=== PATIENT | female | born 1990 | race Hispanic/Latino ===

== ENCOUNTER 2016-10-25 07:00 | Emergency (ER) | payer OTHER, SELFPAY ==
[2016-10-25] MEDS ORDERED: Lidocaine Viscous Sol 2% 15 ml UD Cup ONE (07:23)
[2016-10-25] MEDS ORDERED: Magnesium Sulfate 2 GM/NS 0.9% 50 ML BAG ONE (07:24)
[2016-10-25] MEDS ORDERED: Mag-Al Plus 1200 MG/1200 MG/120 MG/30 ML UDCUP ONE (07:24)
--- NOTE | 2016-10-25 08:12 | ERRECORD ---
[facility] EMERGENCY RECORD HPI ABDOMINAL PAIN (07:17 JLOY) CHIEF COMPLAINTS: Patient presents for evaluation of abdominal pain, Patient presents for evaluation of Pt with epigastric pain starting 3 hours ago while sleeping. Worse with laying down. She had a similar incident 3 years ago in [place] and it resolved with some unknown medication. No meds attempted today. Pt ate spicy food last pm for dinner. HISTORIAN: History provided by patient. LOCATION FEMALE: Symptoms are localized. QUALITY: Pain is dull in nature. TIME COURSE: Sudden onset of symptoms, Symptoms are constant, There has been no change in the patient's symptoms over time. ASSOCIATED WITH FEMALE: No associated chills, No associated diarrhea, No associated fever, No associated nausea, No associated vomiting. RELIEVED BY: Patient's condition relieved by nothing. EXACERBATED BY: Patient's condition exacerbated by supine position. ROS (07:18 JLOY) CONSTITUTIONAL: Historian denies chills, denies fever. GI: Historian reports abdominal pain, denies diarrhea, denies nausea, denies vomiting. GENITOURINARY FEMALE: Historian denies dysuria, denies frequency, denies hematuria. PAST MEDICAL HISTORY MEDICAL HISTORY: Flu vaccine not up to date, Tetanus not up to date, No past medical history,. (07:07 BDON) FEMALE SURGICAL HISTORY: Patient has no surgical history. (07:07 BDON) PSYCHIATRIC HISTORY: No previous psychiatric history. (07:07 BDON) SOCIAL HISTORY: Patient denies alcohol use, Patient denies drug use, Patient has no smoking history. (07:07 BDON) NOTES: Nursing records reviewed, Agree with nursing records. (07:19 JLOY) KNOWN ALLERGIES No Known Drug Allergies CURRENT MEDICATIONS (07:06 BDON) None VITAL SIGNS VITAL SIGNS: BP: 128/77, Pulse: 88, Temp: 96.9 (Oral), Pain: 7, O2 sat: 99, Time: 10/25/2016 07:04. (07:04 BDON) Pulse: 84, Resp: 17, Time: 10/25/2016 08:09. (08:09 BDON) PHYSICAL EXAM (07:18 JLOY) &a-1R&a+25V*p+0X*n8820N*c202B*c15G*c2P*p-0X&a-25V&a+1R Name: Mireya Cano V : 1990 F26 MedRec: [id number] AcctNum: [id number] Prepared: SunOct 25, 2016 08:15 by Interface Page 1 of 3 D [facility] EMERGENCY RECORD CONSTITUTIONAL: Vital Signs Reviewed, Patient appears non toxic, Patient appears, in moderate pain distress, Patient alert and oriented to person, place and time. EYES: Eye exam included findings of eyelids normal to inspection, Pupils equally round and reactive to light, Conjunctiva normal. ENT: Pharynx exam normal, Uvula exam normal, Tonsil exam normal, Mouth exam normal, mucous membranes moist. RESPIRATORY CHEST: Respiratory exam included findings of no respiratory distress, Breath sounds clear, No wheezing, No rales, No rhonchi, Chest exam included findings of chest movement symmetrical. CARDIOVASCULAR: Cardiovascular exam included findings of heart rate regular rate and rhythm, Heart sounds normal. ABDOMEN FEMALE: Abdominal exam included findings of abdomen tender, to the epigastric region, moderate intensity, Bowel sounds normal, Liver normal, Spleen normal, no distension, no peritoneal signs, no rigidity, no guarding, no rebound. NEURO: Néstor coma scale 15, Neuro exam findings include patient oriented to person, place and time, Speech normal. PSYCHIATRIC: Normal affect. MEDICATION ADMINISTRATION SUMMARY Drug Name: GI COCKTAIL - WHITE, Dose Ordered: 40 mL, Route: Oral, Status: Given, Time: 07:30 10/25/2016, Drug Name: Protonix oral, Dose Ordered: 40 mg, Route: Oral, Status: Given, Time: 07:29 10/25/2016, Detailed record available in Medication Service section. DOCTOR NOTES (08:03 JLOY) RE-EVALUATION: The patient's condition has improved, pain resolved. PROBLEM LIST No recorded problems DIAGNOSIS (08:02 JLOY) FINAL: PRIMARY: Abdominal Pain. PRESCRIPTION (08:02 JLOY) omeprazole: CAPSULE,DELAYED RELEASE (ENTERIC COATED) : 20 mg : ORAL : Quantity: 20 Unit: mg Route: ORAL Schedule: once a day Dispense: 14 May substitute. Refills: No Refills . NOTES: No Refills. DISPOSITION PATIENT: Disposition Type: Discharge, Disposition: *Discharge Home. (08:02 JLOY) Patient left the department. (08:13 BDON) &a-1R&a+25V*p+0X*m5980H*c202B*c15G*c2P*p-0X&a-25V&a+1R Name: Mireya Cano V : 1990 F26 MedRec: [id number] AcctNum: [id number] Prepared: SunOct 25, 2016 08:15 by Interface Page 2 of 3 pMD [facility] EMERGENCY RECORD [place]: MASOUD=JAMES Willett, Mira SOSA=MD Valeriano, Celio &a-1R&a+25V*p+0X*d8879Z*c202B*c15G*c2P*p-0X&a-25V&a+1R Name: Mireya Cano V : 1990 F26 MedRec: [id number] AcctNum: [id number] Prepared: SunOct 25, 2016 08:15 by Interface Page 3 of 3 pMD MTDD
--- NOTE | 2016-10-25 08:16 | PICIS ---
[facility] EMERGENCY RECORD TRIAGE (07:06 BDON) TRIAGE NOTES: Epi gastric pain, ate spicy food last night. (07:06 BDON) PATIENT: NAME: Mireya Cano V, AGE: 26, GENDER: female, : Bee 1990, TIME OF GREET: SunOct 25, 2016 07:01, PREFERRED LANGUAGE: Romansh, ETHNICITY: or , ECODE BILLING MAP: RONNY [facility], SSN: [id number], Zip Code: [address], KG WEIGHT: 72.57, PHONE: , , , PERSON ID: [id number], PCP: none. (07:06 BDON) COMPLAINT: STOMACH PAIN. (07:06 BDON) ADMISSION: URGENCY: 4 Non Urgent, ADMISSION SOURCE: Home, TRANSPORT: Walk-in, BED: TRIAGE. (07:06 BDON) ASSESSMENT: Assessment: Epi gastric pain, ate spicy food last night, Symptoms began 3 hours ago. (07:07 BDON) LMP: Last menstrual period: 10/15/2016. (07:07 BDON) TREATMENTS IN PROGRESS: Treatments given Prehospital: none. (07:07 BDON) PROVIDERS: TRIAGE NURSE: Mira Willett RN. (07:06 BDON) VITAL SIGNS: BP 128/77, Pulse 88, Temp 96.9, (Oral), Pain 7, O2 Sat 99, Time 10/25/2016 07:04. (07:04 BDON) PREVIOUS VISIT ALLERGIES: No Known Drug Allergies. (07:06 BDON) No Known Drug Allergies. (07:07 BDON) KNOWN ALLERGIES No Known Drug Allergies CURRENT MEDICATIONS (07:06 BDON) None VITAL SIGNS VITAL SIGNS: BP: 128/77, Pulse: 88, Temp: 96.9 (Oral), Pain: 7, O2 sat: 99, Time: 10/25/2016 07:04. (07:04 BDON) Pulse: 84, Resp: 17, Time: 10/25/2016 08:09. (08:09 BDON) NURSING ASSESSMENT: ABDOMEN (07:31 BDON) CONSTITUTIONAL: Patient arrives ambulatory, History obtained from patient, Patient appears, in distress due to pain, Patient cooperative, Patient alert, Oriented to person, place and time, Skin warm, Skin dry, Skin normal in color. PAIN: to the epigastric region. ABDOMEN: Abdomen assessment findings include abdomen symmetrical, Abdomen soft, non-tender, no associated vomiting. GENITOURINARY FEMALE: no associated urinary complaints. SAFETY: Cart/Stretcher in lowest position, Family at bedside, Hospital ID band on, Patient in view of the nursing station. NURSING PLAN OF CARE: Acute Medical Condition:, Patient is able to participate in development and implementation of nursing plan of care for acute medical condition. &a-1R&a+25V*p+0X*k3904G*c202B*c15G*c2P*p-0X&a-25V&a+1R Name: Mireya Cano V : 1990 F26 MedRec: [id number] AcctNum: [id number] Prepared: SunOct 25, 2016 08:19 by Interface Page 1 of 4 pMD [facility] EMERGENCY RECORD NURSING PROCEDURE: DISCHARGE NOTE (08:09 BDON) DISCHARGE: Patient discharged to home, ambulating without assistance, accompanied by parent, Summary of Care printed/ provided, Patient requested and was provided an electronic copy of Discharge Instructions, Transition record given to patient, Discharge instructions given to patient, Simple or moderate discharge teaching performed, Prescriptions given and instructions on side effects given, Patient treated and evaluated by physician. VITAL SIGNS: Pulse: 84, Resp: 17. MEDICATION ADMINISTRATION SUMMARY Drug Name: GI COCKTAIL - WHITE, Dose Ordered: 40 mL, Route: Oral, Status: Given, Time: 07:30 10/25/2016, Drug Name: Protonix oral, Dose Ordered: 40 mg, Route: Oral, Status: Given, Time: 07:29 10/25/2016, Detailed record available in Medication Service section. MEDICATION SERVICE GI COCKTAIL - WHITE: Order: GI COCKTAIL - WHITE - Dose: 40 mL : Oral Lidocaine Viscous (lidocaine HCl) [10 mL] MAG-AL (magnesium hydroxide/aluminum hydroxide) [30 mL] Ordered by: Celio Bal MD Entered by: Celio Bal MD SunOct 25, 2016 07:16 , Acknowledged by: Carlee Kirby RN SunOct 25, 2016 07:20 Documented as given by: Mira Willett RN SunOct 25, 2016 07:30 Patient, Medication, Dose, Route and Time verified prior to administration. Site: Medication administered P.O. Protonix oral: Order: Protonix oral (pantoprazole sodium) - Dose: 40 mg : Oral Ordered by: Celio Bal MD Entered by: Celio Bal MD SunOct 25, 2016 07:16 , Acknowledged by: Carlee Kirby RN SunOct 25, 2016 07:20 Documented as given by: Mira Willett RN SunOct 25, 2016 07:29 Patient, Medication, Dose, Route and Time verified prior to administration. Site: Medication administered P.O. HPI ABDOMINAL PAIN (07:17 JL) CHIEF COMPLAINTS: Patient presents for evaluation of abdominal pain, Patient presents for evaluation of Pt with epigastric pain starting 3 hours ago while sleeping. Worse with laying down. She had a similar incident 3 years ago in [place] and it resolved with some unknown medication. No meds attempted today. Pt ate spicy food last pm for dinner. HISTORIAN: History provided by patient. LOCATION FEMALE: Symptoms are localized. QUALITY: Pain is dull in nature. TIME COURSE: Sudden onset of symptoms, &a-1R&a+25V*p+0X*w7478Q*c202B*c15G*c2P*p-0X&a-25V&a+1R Name: Mireya Cano V : 1990 F26 MedRec: [id number] AcctNum: [id number] Prepared: SunOct 25, 2016 08:19 by Interface Page 2 of 4 pMD [facility] EMERGENCY RECORD Symptoms are constant, There has been no change in the patient's symptoms over time. ASSOCIATED WITH FEMALE: No associated chills, No associated diarrhea, No associated fever, No associated nausea, No associated vomiting. RELIEVED BY: Patient's condition relieved by nothing. EXACERBATED BY: Patient's condition exacerbated by supine position. ROS (07:18 JL) CONSTITUTIONAL: Historian denies chills, denies fever. GI: Historian reports abdominal pain, denies diarrhea, denies nausea, denies vomiting. GENITOURINARY FEMALE: Historian denies dysuria, denies frequency, denies hematuria. PAST MEDICAL HISTORY MEDICAL HISTORY: Flu vaccine not up to date, Tetanus not up to date, No past medical history,. (07:07 BDON) FEMALE SURGICAL HISTORY: Patient has no surgical history. (07:07 BDON) PSYCHIATRIC HISTORY: No previous psychiatric history. (07:07 BDON) SOCIAL HISTORY: Patient denies alcohol use, Patient denies drug use, Patient has no smoking history. (07:07 BDON) NOTES: Nursing records reviewed, Agree with nursing records. (07:19 JLOY) PHYSICAL EXAM (07:18 JLOY) CONSTITUTIONAL: Vital Signs Reviewed, Patient appears non toxic, Patient appears, in moderate pain distress, Patient alert and oriented to person, place and time. EYES: Eye exam included findings of eyelids normal to inspection, Pupils equally round and reactive to light, Conjunctiva normal. ENT: Pharynx exam normal, Uvula exam normal, Tonsil exam normal, Mouth exam normal, mucous membranes moist. RESPIRATORY CHEST: Respiratory exam included findings of no respiratory distress, Breath sounds clear, No wheezing, No rales, No rhonchi, Chest exam included findings of chest movement symmetrical. CARDIOVASCULAR: Cardiovascular exam included findings of heart rate regular rate and rhythm, Heart sounds normal. ABDOMEN FEMALE: Abdominal exam included findings of abdomen tender, to the epigastric region, moderate intensity, Bowel sounds normal, Liver normal, Spleen normal, no distension, no peritoneal signs, no rigidity, no guarding, no rebound. NEURO: Néstor coma scale 15, Neuro exam findings include patient oriented to person, place and time, Speech normal. PSYCHIATRIC: Normal affect. &a-1R&a+25V*p+0X*z5246F*c202B*c15G*c2P*p-0X&a-25V&a+1R Name: Mireya Cano V : 1990 F26 MedRec: [id number] AcctNum: [id number] Prepared: SunOct 25, 2016 08:19 by Interface Page 3 of 4 pMD [facility] EMERGENCY RECORD EVENTS TRANSFER: Triage to Emergency Triage. (SunOct 25, 2016 07:06 BDON) Emergency Triage to Emergency Room -04. (07:06 BDON) Removed from Emergency Emergency Room -04. (08:13 BDON) DOCTOR NOTES (08:03 JLOY) RE-EVALUATION: The patient's condition has improved, pain resolved. PROBLEM LIST No recorded problems DIAGNOSIS (08:02 JLOY) FINAL: PRIMARY: Abdominal Pain. DISPOSITION PATIENT: Disposition Type: Discharge, Disposition: *Discharge Home. (08:02 JLOY) Patient left the department. (08:13 BDON) INSTRUCTION (08:02 JLOY) DISCHARGE: GASTRITIS VS. ULCER. FOLLOWUP: Follow up with Primary Care Physician in 7-10 days. PRESCRIPTION (08:02 JLOY) omeprazole: CAPSULE,DELAYED RELEASE (ENTERIC COATED) : 20 mg : ORAL : Quantity: 20 Unit: mg Route: ORAL Schedule: once a day Dispense: 14 May substitute. Refills: No Refills . NOTES: No Refills. IMAGING (08:12 BDON) *DISCHARGE INSTRUCTIONS RECEIPT: Image captured from scanner. *SUPPLY CHARGE SHEET: Image captured from scanner. ADMIN DIGITAL SIGNATURE: MD Bal Joshua. (08:03 JLOY) JAMES Willett Bettye. (08:13 BDON) [place]: BDON=JAMES Willett Bettye JLOY=MD Bal Joshua &a-1R&a+25V*p+0X*z0763Q*c202B*c15G*c2P*p-0X&a-25V&a+1R Name: Gogo HernandezBoo , Mireya Ordoñez : 1990 F26 MedRec: [id number] AcctNum: [id number] Prepared: SunOct 25, 2016 08:19 by Interface Page 4 of 4 pMD MTDD
== END 2016-10-25 08:09 | disposition home or self-care (01) ==
LOC: NAV ERS 07:00
DX: R10.13 Epigastric pain (principal)
CPT/HCPCS: 99283; J3475

== ENCOUNTER 2018-10-30 09:19 | Emergency (ER) | payer BC, SELFPAY ==
[2018-10-30 09:59] LABS: #Basophils 0.1 thou/uL (0.0-0.2); #Eosinphils 0.1 thou/uL (0.0-0.7); #Lymphocytes 2.5 thou/uL (1.20-3.40); #Monocytes 0.9 thou/uL (0.11-0.59); #Neutrophils 5.8 thou/uL (1.40-6.50); %Basophils 0.8 % (0.0-1.0); %Eosinophils 0.6 % (0.0-10.0); %Lymphocytes 26.5 % (21.0-51.0); %Monocytes 9.3 % (0.0-10.0); %Neutrophils 62.8 % (42.0-75.0); Hemoglobin 13.5 g/dL (12.0-16.0); Mean Corpuscular HGB CONC 33.6 g/dL (32.0-36.0); Mean Corpuscular Hemoglobin 28.4 pg (27.0-31.0); Mean Corpuscular Volume 84.4 fL (78.0-98.0); Mean Platelet Volume 6.4 fL (7.4-10.4); Platelet Count 305 thou/uL (130-400); RBC Distribution Width 11.8 % (11.5-14.5); Red Blood Cell (RBC) Count 4.75 mill/uL (4.20-5.40); White Blood Cell (WBC) Count 9.3 thou/uL (4.8-10.8)
[2018-10-30 10:02] LABS: Bilirubin Negative (Negative); Blood, Urine Large (Negative); Clarity Clear (Clear); Glucose, Urine (Dipstick) Negative (Negative); Leukocyte Negative (Negative); Nitrite Negative (Negative); Protein, Urine (Dipstick) Negative (Neg-Trace); Urobilinogen 0.2 mg/dL (0.2-1.0)
[2018-10-30 10:11] LABS: Bacteria/HPF 1+ HPF (None Seen); Other Microscopic Description NO; WBC/HPF 0-3 HPF (0-3)
--- NOTE | 2018-10-30 11:13 | ULT ---
PELVIC ULTRASOUND: Date: 10-30-18 History: 28-year-old female with vaginal spotting. Technique: Multiplanar grayscale sonographic imaging of the pelvis obtained with transvaginal imaging . Ovaries were assessed with color flow and spectral analysis. FINDINGS: Gestational sac is present within the uterine fundus. A yolk sac and pole are noted. hear t rate is estimated at 110 beats/minute. Uterus is retroverted and measures 7.4 x 4.4 x 4.8 cm. Right ovary measures 2.4 x 3.4 x 1.8 cm and left ovary measures 1.2 x 2.7 x 1.2 cm. Blood flow is not ed within both ovaries. No ovarian or adnexal mass. No subchorionic hemorrhage evident. No free pelvi c fluid. [place]-rump length is 0.66 cm, which correlates with a 6 week 4 day gestation. Estimated date of sidney pope is 06-21-19. IMPRESSION: Intrauterine gestation as detailed above. heart rate estimated at 110 beats/minute. POS: ANN
== END 2018-10-30 10:57 | disposition home or self-care (01) ==
LOC: NAV ERS 09:19
DX: O20.0 Threatened abortion (principal); Z3A.01 Less than 8 weeks gestation of pregnancy
CPT/HCPCS: 36415; 76856; 81003; 81015; 84702; 85025; 86900; 86901; 87086

== ENCOUNTER 2019-01-08 17:56 | Emergency (ER) | payer BC ==
[2019-01-08] MEDS ORDERED: Lidocaine Viscous Sol 2% 15 ml UD Cup ONE (18:40)
[2019-01-08] MEDS ORDERED: Mag-Al Plus 1200 MG/1200 MG/120 MG/30 ML UDCUP ONE (18:40)
== END 2019-01-08 19:08 | disposition home or self-care (01) ==
LOC: NAV ERS 17:56
DX: O99.612 Diseases of the digestive system complicating pregnancy, second trimester (principal); K29.00 Acute gastritis without bleeding; Z79.82 Long term (current) use of aspirin; Z3A.17 17 weeks gestation of pregnancy
CPT/HCPCS: 99283

== ENCOUNTER 2019-02-04 14:12 | Outpatient (CLI) | payer OTHER, SELFPAY ==
--- NOTE | 2019-02-04 15:30 | ULT ---
OB ULTRASOUND: HISTORY: Evaluation of size and dates. FINDINGS: Real-time imaging of the pelvis shows a single viable intrauterine in a breech presentation . The placenta is posterior and fundal in location. The amniotic fluid is adequate for this stage o f . An amniotic fluid index of 14.3 was obtained. heart rate is 150 beats per minute. Review of anatomy did not detect any abnormalities. measurements are as follows: BPD: 4.7 cm (20 weeks 2 days). HEAD CIRCUMFERENCE: 17.8 cm (20 weeks 2 days). ABDOMINAL CIRCUMFERENCE: 16.7 cm (21 weeks 5 days). FEMUR LENGTH: 3.4 cm (20 weeks 3 days). IMPRESSION: 1. Single viable intrauterine , in a breech presentation. Overall measurements correspondi ng to a gestational age of 20 weeks 3 days. Estimated date of delivery of 06/21/2019. 2. Placenta which is posterior and fundal in location. POS: [facility]
== END 2019-02-04 14:13 | disposition home or self-care (01) ==
LOC: NAV ULT 14:12
PROVIDERS: ATTEND Family Medicine
DX: Z34.92 Encounter for supervision of normal pregnancy, unspecified, second trimester (principal); Z3A.20 20 weeks gestation of pregnancy
CPT/HCPCS: 76805

== ENCOUNTER 2019-03-17 14:38 | Emergency (ER) | payer SELFPAY ==
[2019-03-17] MEDS ORDERED: Mag-Al Plus 1200 MG/1200 MG/120 MG/30 ML UDCUP ONE (14:58)
== END 2019-03-17 15:07 | disposition home or self-care (01) ==
LOC: NAV ERS 14:38
DX: O99.612 Diseases of the digestive system complicating pregnancy, second trimester (principal); K21.9 Gastro-esophageal reflux disease without esophagitis; Z79.82 Long term (current) use of aspirin; Z3A.26 26 weeks gestation of pregnancy
CPT/HCPCS: 99283

== ENCOUNTER 2020-12-20 18:35 | Emergency (ER) | payer BC, MEDICAID ==
[2020-12-20 19:14] LABS: Bilirubin Negative (Negative); Blood, Urine Moderate (Negative); Clarity Clear (Clear); Glucose, Urine (Dipstick) Negative (Negative); Ketone, Urine Negative (Negative); Leukocyte Negative (Negative); Nitrite Negative (Negative); Protein, Urine (Dipstick) Negative (Neg-Trace); Urobilinogen 0.2 mg/dL (Less than 2)
[2020-12-20] MEDS ORDERED: Sodium Chloride 0.9% 1,000 ML ONE ×2 (19:18→20:01)
[2020-12-20 19:22] LABS: RBC/HPF 0-3 HPF (0-3); Squamous Epithelial 0-3 HPF (0-3); WBC/HPF 0-3 HPF (0-3)
[2020-12-20 19:23] LABS: Pregnancy Test - Urine (BHCG) Negative (Negative); Pregu Control Background? CLEAR/WHITE (CLR/WHITE); Pregu Control Bar Appear? YES (CONTROL BAR)
[2020-12-20 19:26] LABS: #Basophils 0.1 thou/uL (0.0-0.2); #Eosinphils 0.2 thou/uL (0.0-0.7); #Lymphocytes 2.5 thou/uL (1.20-3.40); #Neutrophils 8.1 thou/uL (1.40-6.50); %Basophils 0.6 % (0.0-1.0); %Eosinophils 1.4 % (0.0-10.0); %Lymphocytes 21.3 % (21.0-51.0); %Monocytes 8.2 % (0.0-10.0); %Neutrophils 68.5 % (42.0-75.0); Hemoglobin 13.3 g/dL (12.0-16.0); Mean Corpuscular HGB CONC 32.8 g/dL (32.0-36.0); Mean Corpuscular Hemoglobin 28.1 pg (27.0-31.0); Mean Corpuscular Volume 85.5 fL (78.0-98.0); Mean Platelet Volume 5.6 fL (7.4-10.4); Platelet Count 424 thou/uL (130-400); RBC Distribution Width 11.6 % (11.5-14.5); Red Blood Cell (RBC) Count 4.76 mill/uL (4.20-5.40); White Blood Cell (WBC) Count 11.8 thou/uL (4.8-10.8)
[2020-12-20 19:41] LABS: ALT (SGPT) 23 U/L (8-55); AST (SGOT) 15 U/L (5-34); Albumin 3.9 g/dL (3.5-5.0); Alkaline Phosphatase 111 U/L (40-110); Anion Gap 15 mmol/L (10-20); BUN (Urea Nitrogen) 9 mg/dL (7.0-18.7); Bilirubin, Total 0.3 mg/dL (0.2-1.2); Calc. Creatinine Clearance 0 mL/min (70-130); Calcium 9.1 mg/dL (7.8-10.44); Carbon Dioxide 25 mmol/L (22-29); Chloride 104 mmol/L (98-107); Globulin 4.3 g/dL (2.4-3.5); Glucose 126 mg/dL (70-105); Lipase 59 U/L (8-78); Protein, Total 8.2 g/dL (6.0-8.3); Sodium 140 mmol/L (136-145)
== END 2020-12-20 20:33 | disposition short-term general hospital (02) ==
LOC: NAV ERS 18:35
DX: R10.11 Right upper quadrant pain (principal)
CPT/HCPCS: 80053; 81003; 81015; 81025; 83690; 85025; 99284; J7050

== ENCOUNTER 2021-01-05 17:32 | Emergency (ER) | payer BC ==
[2021-01-05 18:49] LABS: #Basophils 0.1 thou/uL (0.0-0.2); #Eosinphils 0.1 thou/uL (0.0-0.7); #Lymphocytes 1.9 thou/uL (1.20-3.40); #Neutrophils 11.3 thou/uL (1.40-6.50); %Basophils 0.5 % (0.0-1.0); %Eosinophils 0.4 % (0.0-10.0); %Neutrophils 79.2 % (42.0-75.0); Hemoglobin 12.1 g/dL (12.0-16.0); Mean Corpuscular HGB CONC 32.7 g/dL (32.0-36.0); Mean Corpuscular Hemoglobin 27.5 pg (27.0-31.0); Mean Corpuscular Volume 84.1 fL (78.0-98.0); Mean Platelet Volume 5.6 fL (7.4-10.4); Platelet Count 444 thou/uL (130-400); RBC Distribution Width 11.6 % (11.5-14.5); Red Blood Cell (RBC) Count 4.39 mill/uL (4.20-5.40); White Blood Cell (WBC) Count 14.2 thou/uL (4.8-10.8)
[2021-01-05] MEDS ORDERED: Sodium Chloride 0.9% 3,000 ML ONE (18:53)
[2021-01-05] MEDS ORDERED: Cefepime 2 GM VIAL ONE (18:53)
[2021-01-05] MEDS ORDERED: Sodium Chloride 0.9% 100 ML ONE (18:54)
[2021-01-05 19:04] LABS: BHCG - Serum Negative (NEGATIVE); Pregs Control Bar Appear? YES (CONTROL BAR)
[2021-01-05 19:10] LABS: ALT (SGPT) 23 U/L (8-55); AST (SGOT) 11 U/L (5-34); Albumin 3.6 g/dL (3.5-5.0); Alkaline Phosphatase 116 U/L (40-110); Anion Gap 15 mmol/L (10-20); BUN (Urea Nitrogen) 7 mg/dL (7.0-18.7); Bilirubin, Total 0.3 mg/dL (0.2-1.2); Calc. Creatinine Clearance 0 mL/min (70-130); Calcium 8.8 mg/dL (7.8-10.44); Carbon Dioxide 25 mmol/L (22-29); Chloride 103 mmol/L (98-107); Globulin 4.2 g/dL (2.4-3.5); Glucose 146 mg/dL (70-105); Potassium 3.6 mmol/L (3.5-5.1); Protein, Total 7.8 g/dL (6.0-8.3); Sodium 139 mmol/L (136-145)
[2021-01-05 19:13] LABS: Bilirubin Negative (Negative); Blood, Urine Moderate (Negative); Clarity Clear (Clear); Glucose, Urine (Dipstick) Negative (Negative); Ketone, Urine Negative (Negative); Leukocyte Trace (Negative); Nitrite Negative (Negative); Protein, Urine (Dipstick) Negative (Neg-Trace); Urobilinogen 0.2 mg/dL (Less than 2)
[2021-01-05 19:21] LABS: Bacteria/HPF Rare-Few HPF (None Seen); RBC/HPF 0-3 HPF (0-3)
[2021-01-05] MEDS ORDERED: Sodium Chloride 0.9% 500 ML ONE (19:48)
[2021-01-05] MEDS ORDERED: diphenhydrAMINE 50 MG/ML VIAL ONE (20:35)
== END 2021-01-05 21:36 | disposition home or self-care (01) ==
LOC: NAV ERS 17:32
DX: L03.116 Cellulitis of left lower limb (principal); L03.115 Cellulitis of right lower limb
CPT/HCPCS: 80053; 81003; 81015; 83605; 84703; 85025; 86140; 87040; 96365; 96367; 96375; J0692; J1200; J3370; J3490; J7030; J7050

== ENCOUNTER 2021-01-14 20:45 | Emergency (ER) | payer BC ==
[2021-01-14] MEDS ORDERED: predniSONE 20 MG TAB ONE (21:26)
== END 2021-01-14 21:40 | disposition home or self-care (01) ==
LOC: NAV ERS 20:45
DX: L03.116 Cellulitis of left lower limb (principal); L03.115 Cellulitis of right lower limb; R21 Rash and other nonspecific skin eruption; R00.0 Tachycardia, unspecified; Z79.899 Other long term (current) drug therapy
CPT/HCPCS: 99283; J7512

== ENCOUNTER 2021-09-22 19:48 | Emergency (ER) | payer BC ==
[2021-09-22] MEDS ORDERED: Mag-Al Plus 1200 MG/1200 MG/120 MG/30 ML UDCUP ONE (20:07)
[2021-09-22] MEDS ORDERED: Lidocaine Viscous Sol 2% 15 ml UD Cup ONE (20:07)
== END 2021-09-22 20:58 | disposition home or self-care (01) ==
LOC: NAV ERS 19:48
DX: K21.9 Gastro-esophageal reflux disease without esophagitis (principal); R09.82 Postnasal drip; I10 Essential (primary) hypertension; E78.5 Hyperlipidemia, unspecified
CPT/HCPCS: 93005

== ENCOUNTER 2022-03-24 13:22 | Emergency (ER) | payer BC, SELFPAY | END 2022-03-24 14:25 | disposition home or self-care (01) | LOC: NAV ERS 13:22 | DX: R00.2 Palpitations (principal); I10 Essential (primary) hypertension; E78.5 Hyperlipidemia, unspecified; K21.9 Gastro-esophageal reflux disease without esophagitis | CPT/HCPCS: 93005 ==

== ENCOUNTER 2023-05-16 17:25 | Emergency (ER) | payer MEDICAID, SELFPAY | END 2023-05-16 18:32 | disposition home or self-care (01) | LOC: NAV ERS 17:25 | DX: H60.93 Unspecified otitis externa, bilateral (principal) | CPT/HCPCS: 99282 ==

== ENCOUNTER 2024-01-20 21:53 | Emergency (ER) | payer MEDICAID, SELFPAY ==
[2024-01-20 22:29] LABS: Bilirubin Negative (Negative); Blood, Urine Moderate (Negative); Clarity Clear (Clear); Glucose, Urine (Dipstick) Negative (Negative); Ketone, Urine 40 mg/dL (Negative); Leukocyte Trace (Negative); Nitrite Negative (Negative); Protein, Urine (Dipstick) Negative (Neg-Trace); Urobilinogen 0.2 mg/dL (Less than 2)
[2024-01-20 22:36] LABS: Bacteria/HPF Rare-Few HPF (None Seen); CAUTI Indications for Culture Pregnancy
[2024-01-20 22:38] LABS: Urine Culture Reflex Yes Yes
[2024-01-20 22:47] LABS: Influenza A by NAA Not Detected (NotDetected); Influenza B by NAA Not Detected (NotDetected); SARS-CoV-2 NAA Rapid Test Not Detected (NotDetected)
== END 2024-01-20 23:30 | disposition home or self-care (01) ==
LOC: NAV ERS 21:53
DX: J20.9 Acute bronchitis, unspecified (principal)
CPT/HCPCS: 81001; 87086; 99283